=== PATIENT | female | born 1980 | race Caucasian/White ===

== ENCOUNTER → 2016-12-10 | Outpatient (CLI) | payer OTHER ==
--- NOTE | 2016-12-11 11:25 | US ---
EXAMINATION TYPE: US OB <= 14 wk fetus DATE OF EXAM: 12/10/2016 3:32 PM COMPARISON: NONE CLINICAL HISTORY: 36-year-old female Z36 confirm dates. Confirm dates, 6, para 2, miscarriage 2, ectopic 1 Date of LMP: 10/01/2016 Beta HcG (if available): `Not available at time of exam EXAM PERFORMED: Transabdominal (TA) FINDINGS: EXAM MEASUREMENTS: GESTATIONAL AGE / DATING Physician Established: (10 weeks/0 days) EDC: 07/08/2017 Dates by LMP: (10 weeks/0 days) EDC: 07/08/2017 Dates by First Scan: This is 1st scan Dates by Current Scan for: (10 weeks/0 days) EDC: 07/08/2017 MATERNAL ANATOMY Uterus: 9.2 x 6.8 x 8.1cm, anteverted Right Ovary: 2.0 x 1.5 x 2.4cm Left Ovary: 2.9 x 1.8 x 1.7cm Post CDS / Adnexa: wnl Presence of free fluid: no Presence of corpus luteal cyst: not seen at this time Presence of subchorionic bleed: 1.5 x 0.9 x 2.5cm hypoechoic area superior to gestational sac GESTATION / SURVEY CRL: 3.1cm (10 weeks/0 days) Yolk Sac (normal less than 6mm): 5.3 mm, upper limits of normal in size. Heart Rate: 172 bpm, upper limits of normal. Rhythm: Normal IUP: Viable IUP AUDITOR TAX NOTES: Viable single IUP measuring 10 weeks 0 days with a heart rate of 172bpm and an est imated delivery date of 07/08/2017, 2.5cm hypoechoic area superior to gestational sac, possible subch orionic bleed. IMPRESSION: 1. Single live intrauterine with a estimated gestational age of 10 weeks 0 days by LMP. Cur rent ultrasound biometry is exactly concordant. 2. Consider follow-up given heart rate at the upper limits of normal (172 BPM) and yolk sac at the up per limits of normal in size (5.3 mm) as well. 3. Small to moderate-sized superior perigestational bleed measuring 2.5 cm.
== END | disposition home or self-care (01) ==
LOC: RADUSWWP 14:45
PROVIDERS: ATTEND Obstetrics & Gynecology
DX: O20.9 Hemorrhage in early pregnancy, unspecified (principal); Z3A.10 10 weeks gestation of pregnancy
CPT/HCPCS: 76801

== ENCOUNTER → 2016-12-24 | Outpatient (CLI) | payer OTHER ==
[2016-12-24 08:09] LABS: CH 30.3; CHCM 33.2; HCT 37.6 % (34.0-46.0); HDW 2.34; HGB 12.8 gm/dL (11.4-16.0); MCH 31.2 pg (25.0-35.0); MCHC 34.1 g/dL (31.0-37.0); MCV 91.6 fL (80.0-100.0); Mean Platelet Volume 6.6; RDW 13.6 % (11.5-15.5); WBC 6.1 k/uL (3.8-10.6)
[2016-12-24 08:16] LABS: Non-African American GFR(MDRD) >60 (>60 ml/min/1.73 sqM)
[2016-12-24 08:48] LABS: Hepatitis B Surface Ag Index 0.07
[2016-12-25 07:58] LABS: HIV-1/HIV-2 Ab Screen NONREAC (NON REAC)
== END | disposition home or self-care (01) ==
LOC: LABWHC1 06:42
PROVIDERS: ATTEND Obstetrics & Gynecology
DX: Z34.81 Encounter for supervision of other normal pregnancy, first trimester (principal)
CPT/HCPCS: 36415; 82565; 82950; 85027; 86762; 86780; 86850; 86900; 86901; 87340; 87389

== ENCOUNTER → 2017-01-12 | Outpatient (CLI) | payer OTHER ==
[2017-01-12 11:52] LABS: Glucose 3 Hour, Gest 69 mg/dL
== END | disposition home or self-care (01) ==
LOC: LABWHC1 07:31
PROVIDERS: ATTEND Obstetrics & Gynecology
DX: O24.419 Gestational diabetes mellitus in pregnancy, unspecified control (principal)
CPT/HCPCS: 36415; 82951; 82952

== ENCOUNTER → 2017-03-25 | Outpatient (CLI) | payer OTHER ==
[2017-03-25 07:53] LABS: CH 32.3; CHCM 34.8; HCT 35.5 % (34.0-46.0); HDW 2.68; HGB 12.1 gm/dL (11.4-16.0); MCH 31.9 pg (25.0-35.0); MCHC 34.2 g/dL (31.0-37.0); MCV 93.4 fL (80.0-100.0); Mean Platelet Volume 7.2; RDW 13.6 % (11.5-15.5); WBC 12.5 k/uL (3.8-10.6)
== END | disposition home or self-care (01) ==
LOC: LABWHC1 06:58
PROVIDERS: ATTEND Obstetrics & Gynecology
DX: Z34.82 Encounter for supervision of other normal pregnancy, second trimester (principal); Z3A.00 Weeks of gestation of pregnancy not specified
CPT/HCPCS: 36415; 82950; 85027

== ENCOUNTER → 2017-03-31 | Outpatient (CLI) | payer OTHER ==
[2017-03-31 11:29] LABS: Hemoglobin A1C 5.3 % (4.2-6.1)
== END | disposition home or self-care (01) ==
LOC: LABWHC1 10:16
PROVIDERS: ATTEND Obstetrics & Gynecology
DX: O24.419 Gestational diabetes mellitus in pregnancy, unspecified control (principal); Z3A.00 Weeks of gestation of pregnancy not specified
CPT/HCPCS: 36415; 83036